=== PATIENT | female | born 1960 | race African-American/Black ===

== ENCOUNTER 2016-06-20 12:39 | Emergency (ER) | payer OTHER ==
[2016-06-20 13:02] VITALS: RESP 18
[2016-06-20] MEDS ORDERED: MECLIZINE 12.5 MG TAB PO STA (13:19)
--- NOTE | 2016-06-20 13:35 | ED ---
General Adult HPI - General Chief complaint: Dizziness Stated complaint: Eye Pain Time Seen by Provider: 06/20/16 13:11 Source: patient, RN notes reviewed Mode of arrival: ambulatory Limitations: no limitations - History of Present Illness Initial comments: This a 35-year-old female presents emergency Department with chief complaints of dizziness, right eye irritation. Patient states that she woke up today noticed her right eye was red, draining crusting. Patient states that he continues to drain. Patient has no blurred vision no pain with ocular movement and no pain associated with her eye. Patient states she has she's had problems with vertigo in the past and states that she feels dizzy at this time. She states it is worse with movement better at rest. She states she is a bland bite but states that she feels off. Patient denies chest pain, shortness of breath. Patient has a history of hypertension controlled medication and boron diabetic. Patient denies nausea, vomiting diarrhea constipation. No focal weakness. - Related Data Home Medications Medication Instructions Recorded Confirmed Omeprazole [PriLOSEC] 20 mg PO AC-BRKFST 12/17/14 06/20/16 Cholecalciferol [Vitamin D3] 1,000 unit PO DAILY 09/28/15 06/20/16 Ascorbic Acid [Vitamin C] 500 mg PO DAILY 06/20/16 06/20/16 Aspirin 81 mg PO DAILY 06/20/16 06/20/16 Lisinopril [Zestril] 20 mg PO DAILY 06/20/16 06/20/16 Clark-3 Fatty Acids [Clark-3] 1,000 mg PO DAILY 06/20/16 06/20/16 Previous Rx's Medication Instructions Recorded Meclizine [Antivert] 25 mg PO TID PRN #15 tab 06/20/16 Tobramycin [Tobrex 0.3% Ophth Soln] 1 drop BOTH EYES Q4HR #5 ml 06/20/16 Allergies Allergy/AdvReac Type Severity Reaction Status Date / Time No Known Allergies Allergy Verified 06/20/16 13:26 Review of Systems ROS Statement: Those systems with pertinent positive or pertinent negative responses have been documented in the HPI. ROS Other: All systems not noted in ROS Statement are negative. Past Medical History Past Medical History: Diabetes Mellitus, GERD/Reflux, Hypertension History of Any Multi-Drug Resistant Organisms: None Reported Past Surgical History: Tubal Ligation Additional Past Surgical History / Comment(s): fibroid tumor removal Past Psychological History: No Psychological Hx Reported Smoking Status: Current every day smoker Past Alcohol Use History: Occasional Past Drug Use History: None Reported General Exam Limitations: no limitations General appearance: alert, in no apparent distress Head exam: Present: atraumatic, normocephalic, normal inspection Eye exam: Present: PERRL, EOMI, conjunctival injection (Moderate right with purulent drainage). Absent: normal appearance, scleral icterus, periorbital swelling ENT exam: Present: normal exam, normal oropharynx, mucous membranes moist, TM's normal bilaterally, normal external ear exam Neck exam: Present: normal inspection, full ROM. Absent: tenderness, meningismus, lymphadenopathy Respiratory exam: Present: normal lung sounds bilaterally. Absent: respiratory distress, wheezes, rales, rhonchi, stridor Cardiovascular Exam: Present: regular rate, normal rhythm, normal heart sounds. Absent: systolic murmur, diastolic murmur, rubs, gallop, clicks Neurological exam: Present: alert Skin exam: Present: warm, dry, intact, normal color. Absent: rash Course Vital Signs 06/20/16 06/20/16 12:58 15:09 Temperature 98.2 F 98.0 F Pulse Rate 61 53 L Respiratory 18 18 Rate Blood Pressure 149/72 136/82 O2 Sat by Pulse 100 98 Oximetry EKG Findings - EKG Comments: EKG Findings:: EKG performed at 15:07 denies bradycardia with a rate of 49. Once 64 QRS duration 84, QT/QTC 456/411 Medical Decision Making - Medical Decision Making 55-year-old female presented for dizziness. Patient states she feels markedly improved after Antivert. She states the dizziness has essentially resolved. Patient lab work within normal limits. Patient will be given Tobrex eye drops for her conjunctivitis. Patient be discharged with Antivert and return parameters were discussed. - Lab Data Result diagrams: 06/20/16 13:50 06/20/16 13:50 Lab Results 06/20/16 06/20/16 06/20/16 Range/Units 13:50 13:50 13:50 WBC 8.0 (3.8-10.6) k/uL RBC 4.47 (3.80-5.40) m/uL Hgb 12.8 (11.4-16.0) gm/dL Hct 38.7 (34.0-46.0) % MCV 86.5 (80.0-100.0) fL MCH 28.6 (25.0-35.0) pg MCHC 33.1 (31.0-37.0) g/dL RDW 15.0 (11.5-15.5) % Plt Count 310 (150-450) k/uL Neutrophils % 45 % Lymphocytes % 43 % Monocytes % 4 % Eosinophils % 4 % Basophils % 1 % Neutrophils # 3.6 (1.3-7.7) k/uL Lymphocytes # 3.4 (1.0-4.8) k/uL Monocytes # 0.3 (0-1.0) k/uL Eosinophils # 0.4 (0-0.7) k/uL Basophils # 0.1 (0-0.2) k/uL Sodium 144 (137-145) mmol/L Potassium 4.1 (3.5-5.1) mmol/L Chloride 111 H (98-107) mmol/L Carbon Dioxide 27 (22-30) mmol/L Anion Gap 6 mmol/L BUN 10 (7-17) mg/dL Creatinine 0.70 (0.52-1.04) mg/dL Est GFR (MDRD) Af Amer >60 (>60 ml/min/1.73 sqM) Est GFR (MDRD) Non-Af >60 (>60 ml/min/1.73 sqM) Glucose 87 (74-99) mg/dL Calcium 9.5 (8.4-10.2) mg/dL Total Bilirubin 0.4 (0.2-1.3) mg/dL AST 13 L (14-36) U/L ALT 26 (9-52) U/L Alkaline Phosphatase 73 (38-126) U/L Troponin I <0.012 (0.000-0.034) ng/mL Total Protein 6.3 (6.3-8.2) g/dL Albumin 3.8 (3.5-5.0) g/dL Disposition Clinical Impression: Vertigo, Conjunctivitis Disposition: HOME SELF-CARE Condition: Stable Instructions: Dizziness (ED) Additional Instructions: Please return to the Emergency Department if symptoms worsen or any other concerns. Prescriptions: Meclizine [Antivert] 25 mg PO TID PRN #15 tab PRN Reason: Vertigo Tobramycin [Tobrex 0.3% Ophth Soln] 1 drop BOTH EYES Q4HR #5 ml Time of Disposition: 15:18
[2016-06-20 14:04] LABS: Basophils # (A) 0.1 k/uL (0-0.2); Basophils % (A) 1 %; CH 28.2; CHCM 32.8; Eosinophils # (A) 0.4 k/uL (0-0.7); Eosinophils % (A) 4 %; HCT 38.7 % (34.0-46.0); HDW 2.92; HGB 12.8 gm/dL (11.4-16.0); Luc # (Auto) 0.31; Luc % (Auto) 4; Lymphocytes # (A) 3.4 k/uL (1.0-4.8); Lymphocytes % (A) 43 %; MCH 28.6 pg (25.0-35.0); MCHC 33.1 g/dL (31.0-37.0); MCV 86.5 fL (80.0-100.0); Mean Platelet Volume 7.8; Monocytes # (A) 0.3 k/uL (0-1.0); Monocytes % (A) 4 %; Neutrophils # (A) 3.6 k/uL (1.3-7.7); Neutrophils % (A) 45 %; RBC 4.47 m/uL (3.80-5.40); WBC (Perox) 7.78
[2016-06-20 14:16] LABS: ALT 26 U/L (9-52); AST 13 U/L (14-36); Alkaline Phosphatase 73 U/L (38-126); Anion Gap 6 mmol/L; Blood Urea Nitrogen 10 mg/dL (7-17); Calcium 9.5 mg/dL (8.4-10.2); Carbon Dioxide 27 mmol/L (22-30); Chloride 111 mmol/L (98-107); Glucose 87 mg/dL (74-99); Non-African American GFR(MDRD) >60 (>60 ml/min/1.73 sqM); Potassium 4.1 mmol/L (3.5-5.1); Sodium 144 mmol/L (137-145); Total Bilirubin 0.4 mg/dL (0.2-1.3); Total Protein 6.3 g/dL (6.3-8.2)
[2016-06-20 15:45] VITALS: BP 126/75; PULSE 55; TEMP 98.1
== END 2016-06-20 15:45 | disposition home or self-care (01) ==
LOC: EC 12:39
DX: R42 Dizziness and giddiness (principal); H10.9 Unspecified conjunctivitis; K21.9 Gastro-esophageal reflux disease without esophagitis; I10 Essential (primary) hypertension; F17.200 Nicotine dependence, unspecified, uncomplicated; Z79.82 Long term (current) use of aspirin; Z79.899 Other long term (current) drug therapy
CPT/HCPCS: 36415; 80053; 84484; 85025; 93005; 99284

== ENCOUNTER 2016-10-10 12:59 | Emergency (ER) | payer OTHER ==
[2016-10-10] MEDS ORDERED: KETOROLAC 30 MG/ML 1 ML VIAL IVP STA (13:26)
--- NOTE | 2016-10-10 13:29 | ED ---
Chest Pain HPI - General Chief Complaint: Chest Pain Stated Complaint: Chest Pain Time Seen by Provider: 10/10/16 13:19 Source: patient, RN notes reviewed Mode of arrival: ambulatory Limitations: no limitations - History of Present Illness Initial Comments: This is a 55-year-old female history of hypertension who presents with complaints of 2 days of right-sided chest pain at his located below her right breast. Increases with certain movements especially turning is sitting up. She states it's 8/10 in severity at this time. She does feel tightness in this area.. No fevers chills nausea vomiting sweats cough. No known history of heart disease no history of lung disease. She does not recall any injury or heavy lifting or anything or precipitated this pain. She denies any abdominal pain or other symptoms. MD Complaint: chest pain - Related Data Home Medications Medication Instructions Recorded Confirmed Omeprazole [PriLOSEC] 20 mg PO AC-BRKFST 12/17/14 10/10/16 Cholecalciferol [Vitamin D3] 1,000 unit PO DAILY 09/28/15 10/10/16 Lisinopril [Zestril] 20 mg PO DAILY 06/20/16 10/10/16 Previous Rx's Medication Instructions Recorded Ibuprofen 800 mg PO Q6HR PRN #20 tablet 10/10/16 Allergies Allergy/AdvReac Type Severity Reaction Status Date / Time Egg Derived Allergy Rash/Hives Verified 10/10/16 14:30 Review of Systems ROS Statement: Those systems with pertinent positive or pertinent negative responses have been documented in the HPI. ROS Other: All systems not noted in ROS Statement are negative. Past Medical History Past Medical History: Diabetes Mellitus, GERD/Reflux, Hypertension History of Any Multi-Drug Resistant Organisms: None Reported Past Surgical History: Tubal Ligation Additional Past Surgical History / Comment(s): fibroid tumor removal Past Psychological History: No Psychological Hx Reported Smoking Status: Current every day smoker Past Alcohol Use History: Occasional Past Drug Use History: None Reported General Exam - General Exam Comments Initial Comments: This is a well-developed well-nourished awake alert oriented x 3 female Limitations: no limitations General appearance: alert, anxious Head exam: Present: atraumatic, normocephalic, normal inspection Eye exam: Present: normal appearance, PERRL, EOMI. Absent: scleral icterus, conjunctival injection, periorbital swelling ENT exam: Present: normal exam, mucous membranes moist Neck exam: Present: normal inspection. Absent: tenderness, meningismus, lymphadenopathy Respiratory exam: Present: chest wall tenderness, other (Reproducible tenderness palpation over the right costosternal margin). Absent: respiratory distress, wheezes, rales, rhonchi, stridor Cardiovascular Exam: Present: regular rate, normal rhythm, normal heart sounds. Absent: systolic murmur, diastolic murmur, rubs, gallop, clicks GI/Abdominal exam: Present: soft, normal bowel sounds. Absent: distended, tenderness, guarding, rebound, rigid Extremities exam: Present: normal inspection, full ROM, normal capillary refill. Absent: tenderness, pedal edema, joint swelling, calf tenderness Back exam: Present: normal inspection Neurological exam: Present: alert, oriented X3, CN II-XII intact Psychiatric exam: Present: normal affect, normal mood Skin exam: Present: warm, dry, intact, normal color. Absent: rash Course Vital Signs 10/10/16 10/10/16 10/10/16 13:12 13:44 14:25 Temperature 98.6 F Pulse Rate 55 L 48 L Pulse Rate [ 58 L [employer] ] Respiratory 18 17 Rate Blood Pressure 130/71 135/69 O2 Sat by Pulse 100 98 Oximetry Chest Pain MDM - MDM EKG shows a bradycardia 56. Interval 156 QRS duration 80 daily since QTC of 14/ 495 nonspecific T-wave configuration some artifact is present. I did reevaluate patient several occasions she is eating some improvement the presentation is consistent with costochondritis. Disposition Clinical Impression: Chest wall syndrome, Costalchondritis Disposition: HOME SELF-CARE Condition: Good Instructions: Costochondritis (ED) Prescriptions: Ibuprofen 800 mg PO Q6HR PRN #20 tablet PRN Reason: Pain Referrals: Reinaldo Mc MD [Primary Care Provider] - 1-2 days
[2016-10-10 13:45] LABS: Basophils # (A) 0.1 k/uL (0-0.2); Basophils % (A) 1 %; CH 28.8; CHCM 33.3; Eosinophils # (A) 0.3 k/uL (0-0.7); Eosinophils % (A) 3 %; HDW 2.95; HGB 11.9 gm/dL (11.4-16.0); Luc % (Auto) 2; Lymphocytes # (A) 3.7 k/uL (1.0-4.8); Lymphocytes % (A) 38 %; MCH 28.8 pg (25.0-35.0); MCV 87.3 fL (80.0-100.0); Mean Platelet Volume 7.3; Monocytes # (A) 0.2 k/uL (0-1.0); Monocytes % (A) 2 %; Neutrophils # (A) 5.4 k/uL (1.3-7.7); Neutrophils % (A) 55 %; RBC 4.12 m/uL (3.80-5.40); RDW 15.1 % (11.5-15.5); WBC 9.8 k/uL (3.8-10.6); WBC (Perox) 9.38
[2016-10-10 13:57] LABS: ALT 28 U/L (9-52); AST 15 U/L (14-36); Alkaline Phosphatase 78 U/L (38-126); Amylase 34 U/L (30-110); Anion Gap 9 mmol/L; Blood Urea Nitrogen 10 mg/dL (7-17); Calcium 9.4 mg/dL (8.4-10.2); Carbon Dioxide 25 mmol/L (22-30); Chloride 108 mmol/L (98-107); Glucose 97 mg/dL (74-99); Magnesium 1.7 mg/dL (1.6-2.3); Non-African American GFR(MDRD) >60 (>60 ml/min/1.73 sqM); Potassium 3.8 mmol/L (3.5-5.1); Sodium 142 mmol/L (137-145); Total Bilirubin 0.6 mg/dL (0.2-1.3); Total Protein 6.7 g/dL (6.3-8.2)
--- NOTE | 2016-10-10 13:57 | XR ---
EXAMINATION TYPE: XR chest 2V DATE OF EXAM: 10/10/2016 HISTORY: Chest Pain. REFERENCE: Previous study dated 09/28/2015. FINDINGS: The heart is mildly enlarged. There is mild vascular congestion and subtle interstitial eva nge. Pleural spaces are clear. IMPRESSION: PLEASE CORRELATE FOR MILD PULMONARY EDEMA AND MILD CONGESTIVE HEART FAILURE.
[2016-10-10 14:00] LABS: Creatine Kinase 83 U/L (30-135)
[2016-10-10 14:09] LABS: Partial Thromboplastin Time 26.5 sec (22.0-30.0); Prothrombin Time 10.1 sec (9.0-12.0)
[2016-10-10 14:14] LABS: Troponin I <0.012 ng/mL (0.000-0.034)
[2016-10-10 14:26] VITALS: RESP 17
[2016-10-10 15:33] VITALS: BP 132/72; PULSE 52; TEMP 98.7
== END 2016-10-10 15:32 | disposition home or self-care (01) ==
LOC: EC 12:59
DX: M94.0 Chondrocostal junction syndrome [Tietze] (principal); R00.1 Bradycardia, unspecified; K21.9 Gastro-esophageal reflux disease without esophagitis; I10 Essential (primary) hypertension; F17.200 Nicotine dependence, unspecified, uncomplicated; Z79.899 Other long term (current) drug therapy; Z91.012 Allergy to eggs
CPT/HCPCS: 36415; 93005; 85379; 83880; 80053; 82150; 82550; 82553; 83690; 83735; 84484; 85025; 85610; 85730; 71020; 99285; 96374; J1885

== ENCOUNTER → 2017-05-01 | Outpatient (CLI) | payer OTHER ==
[2017-05-01 10:23] LABS: T4, Free (Free Thyroxine) 0.8 ng/dL (0.78-2.19)
== END | disposition home or self-care (01) ==
LOC: LABWHC1 09:35
PROVIDERS: ATTEND Internal Medicine Cardiovascular Disease
DX: R00.1 Bradycardia, unspecified (principal)
CPT/HCPCS: 36415; 84439; 84443

== ENCOUNTER → 2018-03-05 | Outpatient (CLI) | payer OTHER ==
--- NOTE | 2018-03-10 11:59 | MM ---
Reason for exam: screening (asymptomatic). Last mammogram was performed 2 years and 8 months ago. History: Patient is postmenopausal. Family history of breast cancer in maternal cousin. Took hormonal contraceptives for 5 years. Physical Findings: A clinical breast exam by your physician is recommended on an annual basis and results should be correlated with mammographic findings. MG Screening Mammo w CAD Bilateral CC and MLO view(s) were taken. Prior study comparison: July 12, 2015, bilateral MG screening mammo w CAD. February 11, 2014, mammogram, performed at [facility]. No significant changes when compared with prior studies. ASSESSMENT: Benign, BI-RAD 2 RECOMMENDATION: Routine screening mammogram of both breasts in 1 year.
== END | disposition home or self-care (01) ==
LOC: RADMAMWWP 15:07
PROVIDERS: ATTEND Internal Medicine
DX: Z12.31 Encounter for screening mammogram for malignant neoplasm of breast (principal)
CPT/HCPCS: 77067

== ENCOUNTER 2018-03-12 07:15 | Day surgery (SDC) | payer OTHER ==
[~2018-03-12 07:15] MED LIST: LACTATED RINGERS 1,000 ML IV SCH
[2018-03-12 07:34] VITALS: TEMP 97.1
[2018-03-12] MEDS ORDERED: LIDOCAINE 1% 20 ML VIAL (10MG/ML) FOR IV START INTRADERMA ONE (07:39)
[2018-03-12] MEDS ORDERED: PROPOFOL 10 MG/ML 20 ML VIAL IV ONE (08:26)
[2018-03-12] MEDS ORDERED: LIDOCAINE 1% INJ 10MG/ML (20 ML MDV) ONE (08:26)
--- NOTE | 2018-03-12 08:41 | P.PCN ---
Date of Procedure: 03/12/18 Procedure(s) Performed: BRIEF HISTORY: Patient is a 57-year-old pleasant female, scheduled for an elective colonoscopy as a part of evaluation of prior history of colon polyps. Her last colonoscopy was about 7 years ago. PROCEDURE PERFORMED: Colonoscopy. PREOPERATIVE DIAGNOSIS: History of colon polyps. IV sedation per Anesthesia. PROCEDURE: After informed consent was obtained, the patient, was brought into the endoscopy unit. IV sedation was administered by Anesthesia under continuous monitoring. Digital rectal examination was normal. Initially the Olympus CF- 160 flexible video colonoscope was then inserted in the rectum, gradually advanced into the cecum without any difficulty. Careful examination was performed as the scope was gradually being withdrawn. Ileocecal valve and the appendiceal orifice were visualized and appeared normal. Prep was excellent. Mucosa of the cecum, ascending colon, transverse colon, descending colon, sigmoid colon, and rectum appeared normal. Scattered sigmoid diverticulosis seen. Retroflexion was performed in the rectum and no lesions were seen. The patient tolerated the procedure well. IMPRESSION: Normal-appearing colon from rectum to cecum with no evidence of colorectal neoplasia Scattered sigmoid diverticulosis. RECOMMENDATIONS: Findings of this examination were discussed with the patient as well as a family. She was advised to have a repeat screening colonoscopy in 10 years.
[2018-03-12 09:07] VITALS: BP 135/83; PULSE 91; RESP 18
== END 2018-03-12 09:25 | disposition home or self-care (01) ==
LOC: ORWHC2ENDO 07:15
PROVIDERS: ATTEND Internal Medicine Gastroenterology
DX: Z12.11 Encounter for screening for malignant neoplasm of colon (principal); K57.30 Diverticulosis of large intestine without perforation or abscess without bleeding; Z86.010 Personal history of colon polyps; K21.9 Gastro-esophageal reflux disease without esophagitis; I10 Essential (primary) hypertension; F17.210 Nicotine dependence, cigarettes, uncomplicated; Z79.899 Other long term (current) drug therapy; Z91.012 Allergy to eggs
CPT/HCPCS: J2001; J2704; G0105; 45378

== ENCOUNTER → 2018-10-25 | Outpatient (CLI) | payer OTHER ==
--- NOTE | 2018-10-25 13:38 | MR ---
EXAMINATION TYPE: MR cervical spine wo con DATE OF EXAM: 10/25/2018 COMPARISON: None HISTORY: Neck pain CONTRAST: Performed utilizing 0 mL intravenous Gadavist gadolinium contrast. TECHNIQUE: Multiplanar multiecho imaging on a 3.0 Sherrill magnet is performed through the cervical spin e. FINDINGS: The craniovertebral junction is normal. Vertebral body alignment is normal. C7-T1: No focal disc herniation or significant disc bulge is evident. No spinal canal stenosis or n eural foraminal stenosis is present. C6-7: No focal disc herniation or significant disc bulge is evident. No spinal canal stenosis or lexie ral foraminal stenosis is present. C5-6: There is a small central bulge with mild anterior thecal sac compression. No cord contact is ev ident. No spinal canal stenosis. No neural foraminal stenosis.. C4-5: No focal disc herniation or significant disc bulge is evident. No spinal canal stenosis or lexie ral foraminal stenosis is present. C3-4: There is a small central and left paracentral bulge with anterior thecal sac compression. No co rd contact is evident. No spinal canal stenosis or neural foraminal stenosis.. C2-3: No focal disc herniation or significant disc bulge is evident. No spinal canal stenosis or lexie ral foraminal stenosis is present. Cord maintains normal signal through its visualized course. Disc heights are preserved. Vertebral bod y heights are preserved. There is mild diffuse disc desiccation throughout the cervical spine. IMPRESSIONS: 1. Disc bulges C5-6 and C3-4 without cord contact or stenosis.
== END | disposition home or self-care (01) ==
LOC: RADMRIMAIN 12:27
PROVIDERS: ATTEND Pain Medicine Pain Medicine
DX: M50.21 Other cervical disc displacement, high cervical region (principal)
CPT/HCPCS: 72141

== ENCOUNTER → 2020-04-27 | Outpatient (CLI) | payer BC ==
--- NOTE | 2020-04-27 09:35 | US ---
EXAMINATION TYPE: US duplex aorta DATE OF EXAM: 04/27/2020 COMPARISON: NONE Patient of large body habitus. Technically difficult. CLINICAL HISTORY: Z82.49 Family history of Ischemic heart disease. EXAM MEASUREMENTS: Abdominal Aorta: Proximal: 2.6cm Mid: 1.8cm Distal: 1.4 Bifurcation: Right 1.3cm, Left 1.2cm Exam suboptimal due to patient's body habitus but abdominal aorta is successfully visualized through the bifurcation. IMPRESSION: Suboptimal study without ultrasound evidence for greater than 3.0 cm AAA
== END | disposition home or self-care (01) ==
LOC: RADUSWWP 08:19
PROVIDERS: ATTEND Family Medicine
DX: Z13.6 Encounter for screening for cardiovascular disorders (principal); Z82.49 Family history of ischemic heart disease and other diseases of the circulatory system
CPT/HCPCS: 93979

== ENCOUNTER → 2020-05-13 | Outpatient (CLI) | payer BC ==
--- NOTE | 2020-05-15 10:14 | CTL ---
EXAMINATION TYPE: CT Low Dose Lung DATE OF EXAM ORDERED: 05/13/2020 HISTORY: Long-term tobacco use. Lung cancer screening CT DLP: 75.[address] CTDI: 2.4 mGy Automated exposure control for dose reduction was used. SCREENING VISIT: Initial study COMPARISON: None TECHNIQUE: Low dose computed tomography scan was performed through the chest at 1 mm thick sections a nd reconstructed images in the coronal plane at [address] DIAGNOSTIC QUALITY: Satisfactory FINDINGS: LUNG NODULES: Present, detailed below: There is 3.2 x 2.5 mm nodule peripheral lingula axial image 152. There is 3.1 x 2.3 mm hypodense possibly calcified nodule right lower lobe axial image 128. LUNGS: COPD: Severity: Mild Fibrosis: Severity: Mild bibasilar Lymph nodes: Prominent paratracheal lymph node measuring 1.7 x 0.8 cm on image 84. No definitive grea ter than 1 cm thoracic lymph nodes Other findings: Slightly elevated left hemidiaphragm. RIGHT PLEURAL SPACE: Effusion: None Calcification: None Thickening: None Pneumothorax: None LEFT PLEURAL SPACE: Effusion: None Calcification: None Thickening: None Pneumothorax: None HEART: Heart Size: Upper limits of normal Coronary calcification: [id number] in the RCA distribution Pericardial effusion: Non- OTHER FINDINGS: Upper abdomen: None Bony thorax: Mild multilevel spurring Supraclavicular region: None Other: Some prominent but benign-appearing bilateral axillary lymph nodes. IMPRESSION: Small benign nodules. No suspicious greater than [address] LUNG RAD AND CT CHEST RECOMMENDATION: Lung-Rad 2 Benign Appearance or Behavior: Continue annual sc reening with LDCT in 12 months. S Modifier (other clinically significant findings): None
== END | disposition home or self-care (01) ==
LOC: RADCTMAIN 15:43
PROVIDERS: ATTEND Nurse Practitioner Family
DX: Z12.2 Encounter for screening for malignant neoplasm of respiratory organs (principal); R91.8 Other nonspecific abnormal finding of lung field; F17.210 Nicotine dependence, cigarettes, uncomplicated
CPT/HCPCS: 71271

== ENCOUNTER → 2020-05-13 | Outpatient (CLI) | payer BC ==
--- NOTE | 2020-05-16 08:54 | MM ---
Reason for exam: screening (asymptomatic). Last mammogram was performed 2 years and 2 months ago. History: Patient is postmenopausal. Family history of breast cancer in maternal cousin. Took hormonal contraceptives for 5 years. Physical Findings: A clinical breast exam by your physician is recommended on an annual basis and results should be correlated with mammographic findings. MG Screening Mammo w CAD Bilateral CC and MLO view(s) were taken. Prior study comparison: March 05, 2018, bilateral MG screening mammo w CAD. July 12, 2015, bilateral MG screening mammo w CAD. The breast tissue is heterogeneously dense. This may lower the sensitivity of mammography. There is no discrete abnormality. No significant changes when compared with prior studies. ASSESSMENT: Negative, BI-RAD 1 RECOMMENDATION: Routine screening mammogram of both breasts in 1 year.
== END | disposition home or self-care (01) ==
LOC: RADMAMWWP 16:05
PROVIDERS: ATTEND Family Medicine
DX: Z12.31 Encounter for screening mammogram for malignant neoplasm of breast (principal)
CPT/HCPCS: 77067

== ENCOUNTER → 2020-06-20 | Outpatient (CLI) | payer BC ==
--- NOTE | 2020-06-20 09:52 | US ---
EXAMINATION TYPE: US abdomen complete DATE OF EXAM: 06/20/2020 COMPARISON: NONE CLINICAL HISTORY: 59-year-old female R79.82 Elevated C-reactive protein. TECHNIQUE: Multiple sonographic images of the abdomen are obtained. FINDINGS: EXAM MEASUREMENTS: Liver Length: 17.2 cm Gallbladder Wall: 0.2 cm CBD: 0.4 cm Spleen: 8.4 cm Right Kidney: 10.4 x 4.0 x 3.6 cm Left Kidney: 10.3 x 5.2 x 3.9 cm Pancreas: Tail obscured by overlying bowel gas. The remainder visualized portions appear within norm al limits. Liver: wnl Gallbladder: wnl Evidence for sonographic Heller's sign: no CBD: wnl Spleen: wnl Right Kidney: no evidence of hydronephrosis Left Kidney: no evidence of hydronephrosis Upper IVC: wnl Abd Aorta: wnl IMPRESSION: 1. Borderline sized liver at 17.2 cm. 2. Suboptimal visualization of the pancreatic tail. 3. Otherwise, unremarkable sonographic examination of the abdomen.
--- NOTE | 2020-06-20 11:06 | US ---
EXAMINATION TYPE: US pelvis complete transvag DATE OF EXAM: 06/20/2020 COMPARISON: NONE CLINICAL HISTORY: 59-year-old female R79.82 Elevated C-reactive protein. TECHNIQUE: Transabdominal sonographic images of the pelvis were acquired. Transvaginal sonographic i mages were medically necessary to better assess the following anatomy: uterus and ovaries Date of LMP: unknown EXAM MEASUREMENTS: Uterus: 7.6 x 3.5 x 4.8 cm Endometrial Stripe: 0.2 cm Right Ovary: unable to visualize Left Ovary: unable to visualize 1. Uterus: Anteverted with heterogeneous myometrium. 2. Endometrium: appears wnl 3. Right Ovary: Obscured by overlying bowel gas 4. Left Ovary: Obscured by overlying bowel gas 5. Bilateral Adnexa: wnl 6. Posterior cul-de-sac: Questionable trace fluid. IMPRESSION: 1. Heterogeneous myometrium may reflect diffuse small fibroid change or adenomyosis. 2. Thin endometrial stripe at 2 mm. 3. Unable to visualize the ovaries.
== END | disposition home or self-care (01) ==
LOC: RADUSWWP 08:26
PROVIDERS: ATTEND Family Medicine
DX: R93.89 Abnormal findings on diagnostic imaging of other specified body structures (principal); R79.82 Elevated C-reactive protein (CRP)
CPT/HCPCS: 76700; 76830; 76856

== ENCOUNTER → 2020-06-30 | Outpatient (CLI) | payer BC ==
--- NOTE | 2020-06-30 11:58 | CT ---
EXAMINATION TYPE: CT abdomen pelvis w con DATE OF EXAM: 06/30/2020 COMPARISON: Ultrasound 06/20/2020 HISTORY: 59 year-old female R82.90, with right flank pain, abnormal findings in urine TECHNIQUE: Contiguous axial scanning of the abdomen and pelvis following administration of 100 ml Iso haydee 300 IV contrast. Delayed images through the kidneys and coronal/sagittal reconstructions perform ed. CT DLP: 1196.6 mGycm Automated exposure control for dose reduction was used. FINDINGS: Heart upper limits of normal size without pericardial effusion. There may be atelectasis in the lower lungs without pleural effusion. Small hiatal hernia. Liver enlarged at 19.8 cm. No focal liver lesion or biliary ductal dilatation. Portal venous system a ppears patent. Gallbladder, adrenal glands, right kidney, spleen, and pancreas appear within normal limits. Tiny subcentimeter cortical hypodensity anterior mid pole left kidney too small for accurate CT denice cterization, likely small cortical cyst. Surgical clips are present along the mid to lower left periaortic retroperitoneum. No mesenteric or r etroperitoneal lymphadenopathy. No dilated small bowel, free fluid, or free air. Normal appendix. Scattered colonic diverticulosis. Oral contrast progressed to the distal sigmoid. No pericolonic inflammatory change. Bladder partially distended. Uterus anteverted. Pelvic phleboliths. Surgical clips along the left adn exa. Unable to clearly delineate either ovary. Numerous nonenlarged inguinal lymph nodes measuring up to 8 mm and within the external iliac chain me asuring up to 8 mm. Bones: 1.2 cm sclerotic focus left iliac wing. Mild degenerative disc disease L5-S1. Superior endplat e Schmorl's node T11. Facet arthropathy lower lumbar spine. IMPRESSION: 1. SURGICAL CLIPS ALONG THE MID TO LOWER LEFT PARA-AORTIC RETROPERITONEUM AND ALSO WITHIN THE LEFT AD NEXA. CORRELATE WITH PATIENT'S PRIOR SURGICAL HISTORY. NEITHER OVARY COULD BE CLEARLY DELINEATED. 2. SMALL HIATAL HERNIA. MILD HEPATOMEGALY (19.8 CM). GENERALIZED COLONIC DIVERTICULOSIS WITHOUT ACUTE DIVERTICULITIS. 3. A 1.2 CM SCLEROTIC FOCUS OF THE LEFT ILIAC WING, LIKELY BENIGN BONE ISLAND IN THE ABSENCE OF ANY KNOWN PRIMARY MALIGNANCY. IF FURTHER EVALUATION IS DESIRED, NUCLEAR MEDICINE WHOLE BODY BONE SCAN CAN BE CONSIDERED.
== END ==
LOC: RADCTMAIN 08:59
PROVIDERS: ATTEND Family Medicine
DX: K44.9 Diaphragmatic hernia without obstruction or gangrene (principal); R16.0 Hepatomegaly, not elsewhere classified; K57.30 Diverticulosis of large intestine without perforation or abscess without bleeding
CPT/HCPCS: 74177; Q9967

== ENCOUNTER → 2020-08-03 | Outpatient (CLI) | payer BC ==
--- NOTE | 2020-08-03 15:30 | NM ---
EXAMINATION TYPE: NM bone scan whole body DATE OF EXAM: 08/03/2020 COMPARISON: NONE HISTORY: left pelvic pain Delayed whole-body scanning was performed following the injection of 22.8 mCi Tc 99m MDP. Images acq uired 3 hours post injection. FINDINGS: There is degenerative uptake noted about the shoulders, sternoclavicular joints, bilateral knees, lizbeth ateral ankles, left midfoot and great toes. There is no evidence for intense uptake to suggest bony d estructive process or lesion. No fractures are evident. IMPRESSION: Degenerative uptake identified.
== END | disposition home or self-care (01) ==
LOC: RADNMMAIN 11:31
PROVIDERS: ATTEND Family Medicine
DX: R10.2 Pelvic and perineal pain (principal)
CPT/HCPCS: 78306; A9503

== ENCOUNTER 2020-12-17 19:40 | Emergency (ER) | payer BC ==
[2020-12-17 19:46] VITALS: TEMP 98.4
--- NOTE | 2020-12-17 19:53 | ED ---
General Adult HPI - General Chief complaint: Extremity Problem,Nontraumatic Stated complaint: L arm pain Time Seen by Provider: 12/17/20 19:46 Source: patient Mode of arrival: ambulatory Limitations: no limitations - History of Present Illness Initial comments: Patient presents to the ED with her for evaluation. Patient states that she just got off of work about 30 minutes ago when she developed "shooting pain" down her left arm. Patient states that the pain shoots from her left shoulder region down to her fingertips, and is episodic in nature. Patient denies having any pain currently. Patient denies trauma or injury that she is aware of. Patient denies fever or chills, headache, focal numbness/weakness/neuro deficit, neck/back pain, chest pain or pressure, dyspnea, palpitations, dizziness, nausea/vomiting/diaphoresis, abdominal pain, dysuria or urinary symptoms, arm swelling, leg or calf swelling or pain, or any other symptoms or complaints. - Related Data Home Medications Medication Instructions Recorded Confirmed Baclofen [Lioresal] 20 mg PO TID PRN 12/17/20 12/17/20 Escitalopram [Lexapro] 10 mg PO DAILY 12/17/20 12/17/20 HYDROcodone/APAP 10-325MG [Russell 1 tab PO Q8H PRN 12/17/20 12/17/20 10-325] Ibuprofen [Motrin] 800 mg PO Q8H PRN 12/17/20 12/17/20 Magnesium 250 mg PO DAILY 12/17/20 12/17/20 Multivitamins, Thera [Multivitamin 1 tab PO DAILY 12/17/20 12/17/20 (formulary)] Zinc 50 mg PO DAILY 12/17/20 12/17/20 Allergies Allergy/AdvReac Type Severity Reaction Status Date / Time Egg Derived Allergy Rash/Hives Verified 12/17/20 20:27 Review of Systems ROS Statement: Those systems with pertinent positive or pertinent negative responses have been documented in the HPI. ROS Other: All systems not noted in ROS Statement are negative. Past Medical History Past Medical History: GERD/Reflux, Hypertension History of Any Multi-Drug Resistant Organisms: None Reported Past Surgical History: Tubal Ligation Additional Past Surgical History / Comment(s): fibroid tumor removal. COLONOSOCPY Past Anesthesia/Blood Transfusion Reactions: No Reported Reaction Past Psychological History: No Psychological Hx Reported Smoking Status: Current every day smoker Past Alcohol Use History: Occasional Past Drug Use History: None Reported - Past Family History Mother Family Medical History: No Reported History General Exam Limitations: no limitations General appearance: alert, in no apparent distress Head exam: Present: atraumatic, normocephalic Eye exam: Present: normal appearance, EOMI ENT exam: Present: mucous membranes moist Neck exam: Present: full ROM, other (Trachea is in midline). Absent: tenderness Respiratory exam: Present: normal lung sounds bilaterally. Absent: respiratory distress, wheezes, rales, rhonchi, stridor Cardiovascular Exam: Present: regular rate, normal rhythm, normal heart sounds, other (Normal radial pulses bilaterally) GI/Abdominal exam: Present: soft. Absent: distended, tenderness, guarding Extremities exam: Present: normal inspection, full ROM. Absent: tenderness, pedal edema, calf tenderness Back exam: Present: normal inspection. Absent: tenderness Neurological exam: Present: alert, oriented X3. Absent: motor sensory deficit Psychiatric exam: Present: normal affect, normal mood Skin exam: Present: warm, dry, intact, normal color Course Vital Signs 12/17/20 12/17/20 19:43 21:27 Temperature 98.4 F Pulse Rate 102 H 56 L Respiratory 18 16 Rate Blood Pressure 168/84 131/77 O2 Sat by Pulse 98 100 Oximetry - Reevaluation(s) Reevaluation #1: 12/17/20 23:17 Patient continues to deny having any chest pain, and she denies development of any new symptoms while in the ED. Patient remains alert and breathing comfortably. Patient and are aware the patient's test results, and patient feels comfortable going home at this time. She was counseled about arm pain and possible causes. She was clearly explained return and follow-up instructions, and she feels comfortable with this plan. She was also instructed to follow up closely with her primary care provider. EKG Findings - EKG Comments: EKG Findings:: Sinus bradycardia, ventricular rate of 56 bpm, no ectopy, normal AL and QRS intervals, normal QT interval, normal axis, nonspecific T-wave abnormality Medical Decision Making - Medical Decision Making Patient's ED workup is fairly unremarkable, including 2 negative troponins drawn about 2 hours apart. Patient reports having "shooting" left arm pain radiating from her left shoulder down to her fingertips. Given this description, I suspect that her pain may be radicular or neuropathic in etiology. I do not suspect a cardiac or emergent medical condition at this time. Patient was clearly provided return and follow-up instructions, and she feels comfortable going home at this time. - Lab Data Result diagrams: 12/17/20 20:27 12/17/20 20:27 Lab Results 12/17/20 12/17/20 12/17/20 Range/Units 20:27 20:27 20:27 WBC 9.4 (3.8-10.6) k/uL RBC 4.58 (3.80-5.40) m/uL Hgb 13.0 (11.4-16.0) gm/dL Hct 40.1 (34.0-46.0) % MCV 87.7 (80.0-100.0) fL MCH 28.4 (25.0-35.0) pg MCHC 32.4 (31.0-37.0) g/dL RDW 15.9 H (11.5-15.5) % Plt Count 374 (150-450) k/uL MPV 7.5 Neutrophils % 54 % Lymphocytes % 35 % Monocytes % 3 % Eosinophils % 3 % Basophils % 1 % Neutrophils # 5.1 (1.3-7.7) k/uL Lymphocytes # 3.3 (1.0-4.8) k/uL Monocytes # 0.3 (0-1.0) k/uL Eosinophils # 0.3 (0-0.7) k/uL Basophils # 0.0 (0-0.2) k/uL PT 10.1 (9.0-12.0) sec INR 0.9 (<1.2) APTT 26.5 (22.0-30.0) sec Sodium 138 (137-145) mmol/L Potassium 4.7 (3.5-5.1) mmol/L Chloride 106 (98-107) mmol/L Carbon Dioxide 24 (22-30) mmol/L Anion Gap 8 mmol/L BUN 11 (7-17) mg/dL Creatinine 0.58 (0.52-1.04) mg/dL Est GFR (CKD-EPI)AfAm >90 (>60 ml/min/1.73 sqM) Est GFR (CKD-EPI)NonAf >90 (>60 ml/min/1.73 sqM) Glucose 87 (74-99) mg/dL Calcium 9.8 (8.4-10.2) mg/dL Total Bilirubin 0.4 (0.2-1.3) mg/dL AST 26 (14-36) U/L ALT 14 (4-34) U/L Alkaline Phosphatase 91 (38-126) U/L Troponin I (0.000-0.034) ng/mL Total Protein 7.3 (6.3-8.2) g/dL Albumin 4.4 (3.5-5.0) g/dL 12/17/20 12/17/20 Range/Units 20:27 22:27 WBC (3.8-10.6) k/uL RBC (3.80-5.40) m/uL Hgb (11.4-16.0) gm/dL Hct (34.0-46.0) % MCV (80.0-100.0) fL MCH (25.0-35.0) pg MCHC (31.0-37.0) g/dL RDW (11.5-15.5) % Plt Count (150-450) k/uL MPV Neutrophils % % Lymphocytes % % Monocytes % % Eosinophils % % Basophils % % Neutrophils # (1.3-7.7) k/uL Lymphocytes # (1.0-4.8) k/uL Monocytes # (0-1.0) k/uL Eosinophils # (0-0.7) k/uL Basophils # (0-0.2) k/uL PT (9.0-12.0) sec INR (<1.2) APTT (22.0-30.0) sec Sodium (137-145) mmol/L Potassium (3.5-5.1) mmol/L Chloride (98-107) mmol/L Carbon Dioxide (22-30) mmol/L Anion Gap mmol/L BUN (7-17) mg/dL Creatinine (0.52-1.04) mg/dL Est GFR (CKD-EPI)AfAm (>60 ml/min/1.73 sqM) Est GFR (CKD-EPI)NonAf (>60 ml/min/1.73 sqM) Glucose (74-99) mg/dL Calcium (8.4-10.2) mg/dL Total Bilirubin (0.2-1.3) mg/dL AST (14-36) U/L ALT (4-34) U/L Alkaline Phosphatase (38-126) U/L Troponin I <0.012 <0.012 (0.000-0.034) ng/mL Total Protein (6.3-8.2) g/dL Albumin (3.5-5.0) g/dL - Radiology Data Radiology results: report reviewed (Chest x-ray: No active cardiopulmonary disease) Disposition Clinical Impression: Left arm pain Disposition: HOME SELF-CARE Condition: Stable Instructions (If sedation given, give patient instructions): Cervical Radiculopathy (ED), Arm Pain (ED) Additional Instructions: Return to the ER immediately should you develop new or worsening pain, a fever, shortness of breath, vomiting, feeling dizzy or faint, or new or worsening symptoms. Follow up closely with your primary care provider. Is patient prescribed a controlled substance at d/c from ED?: No Referrals: Kia Farrar III, MD [Primary Care Provider] - 1-2 days Time of Disposition: 23:18
[2020-12-17 20:37] LABS: Basophils % (A) 1 %; Eosinophils # (A) 0.3 k/uL (0-0.7); Eosinophils % (A) 3 %; HCT 40.1 % (34.0-46.0); Lymphocytes # (A) 3.3 k/uL (1.0-4.8); Lymphocytes % (A) 35 %; MCH 28.4 pg (25.0-35.0); MCHC 32.4 g/dL (31.0-37.0); MCV 87.7 fL (80.0-100.0); Mean Platelet Volume 7.5; Monocytes # (A) 0.3 k/uL (0-1.0); Monocytes % (A) 3 %; Neutrophils # (A) 5.1 k/uL (1.3-7.7); Neutrophils % (A) 54 %; Platelet Count 374 k/uL (150-450); RBC 4.58 m/uL (3.80-5.40); RDW 15.9 % (11.5-15.5); WBC 9.4 k/uL (3.8-10.6)
[2020-12-17 20:45] LABS: INR 0.9 (<1.2); Partial Thromboplastin Time 26.5 sec (22.0-30.0); Prothrombin Time 10.1 sec (9.0-12.0)
--- NOTE | 2020-12-17 20:47 | XR ---
EXAMINATION TYPE: XR chest 1V portable DATE OF EXAM: 12/17/2020 COMPARISON: 10/10/2016 HISTORY: Chest pain TECHNIQUE: Single view FINDINGS: There is no heart failure nor confluent pneumonic infiltrate. Costophrenic angles are clear . There is apparent old left-sided healed rib fractures. There are no hilar masses. There are chest l mildred. Thoracic spine is intact. IMPRESSION: No active cardiopulmonary disease. No change.
[2020-12-17 20:48] LABS: ALT 14 U/L (4-34); AST 26 U/L (14-36); African American GFR (CKD) >90 (>60 ml/min/1.73 sqM); Albumin 4.4 g/dL (3.5-5.0); Alkaline Phosphatase 91 U/L (38-126); Anion Gap 8 mmol/L; Blood Urea Nitrogen 11 mg/dL (7-17); Calcium 9.8 mg/dL (8.4-10.2); Carbon Dioxide 24 mmol/L (22-30); Chloride 106 mmol/L (98-107); Glucose 87 mg/dL (74-99); Non-African American GFR(CKD) >90 (>60 ml/min/1.73 sqM); Potassium 4.7 mmol/L (3.5-5.1); Sodium 138 mmol/L (137-145); Total Bilirubin 0.4 mg/dL (0.2-1.3); Total Protein 7.3 g/dL (6.3-8.2)
[2020-12-17 21:28] VITALS: RESP 16
[2020-12-17 23:25] VITALS: BP 128/70; PULSE 65
== END 2020-12-17 23:23 | disposition home or self-care (01) ==
LOC: EC 19:40
DX: M79.602 Pain in left arm (principal); I10 Essential (primary) hypertension; F17.200 Nicotine dependence, unspecified, uncomplicated; Z79.899 Other long term (current) drug therapy
CPT/HCPCS: 36415; 71045; 80053; 84484; 85025; 85610; 85730; 93005; 99284

== ENCOUNTER → 2022-03-12 | Outpatient (CLI) | payer BC ==
--- NOTE | 2022-03-12 08:06 | US ---
EXAMINATION TYPE: US thyroid st tissue head/neck DATE OF EXAM: 03/12/2022 COMPARISON: NONE CLINICAL HISTORY: E04.1 NONTOXIC SINGLE THYROID NODULE. MEASUREMENTS: GLAND SIZE: Right Lobe: 4.4 x 1.8 x 1.3 cm Homogeneous Left Lobe: 3.7 x 1.2 x 1.7cm Homogeneous Isthmus Thickness: 0.2 NODULES RIGHT: # of nodules measured on right: 0 LEFT: # of nodules measured on left: 0 Subcentimeter cyst noted. ISTHMUS: # of nodules measured within isthmus: 0 Bilateral neck scanned, no evidence of lymphadenopathy. Homogeneous normal-sized thyroid with few tiny thin-walled cystic nodules in the left thyroid lobe. IMPRESSION: As above. No concerning nodules.
--- NOTE | 2022-03-13 07:27 | BD ---
EXAMINATION TYPE: Axial Bone Density DATE OF EXAM: 03/12/2022 COMPARISON: NONE CLINICAL HISTORY: 61 years year old Female. ICD-10 CODE: Z13.820 SCREENING FOR OSTEOPOROSIS postmeno pausal female Height: 5 FT 2 IN Weight: 178 FRAX RISK QUESTIONS: Alcohol (3 or more units per day): NO Family History (Parent hip fracture): NO Glucocorticoids (More than 3mos): NO (Ex: prednisone, prednisolone, methylprednisolone, dexamethasone, and hydrocortisone). History of Fracture in Adulthood: YES Secondary Osteoporosis: 1. Type 1 Diabetes: NO 2. Hyperthyroidism: NO 3. Menopause before 45: YES 4. Malnutrition: NO 5. Chronic liver disease: NO Rheumatoid Arthritis: NO Current Tobacco Use: YES RISK FACTORS HISTORY OF: Surgery to Spine/Hip(right/left)/Wrist (right/left): NO Family History of Osteoporosis: NO Active: YES Diet low in dairy products/other sources of calcium: NO Postmenopausal woman: YES Take estrogen and/or progesterone medications: NOT NOW Lost more than 2 inches in height since high school: NO Frequent falls: NO Poor Health: GOOD Hyperparathyroidism: NO Adrenal Insufficiency: NO MEDICATIONS: Additional Medications: CHOLESTEROL MEDS, Additional History: EXAM MEASUREMENTS: Bone mineral densitometry was performed using the [facility]. Bone mineral density as measured about the Lumbar spine is: ----- L1-L4(G/cm2): 0.906 T Score Values are as follows: ----- L1: -0.9 ----- L2: -2.4 ----- L3: -2.9 ----- L4: -2.7 ----- L1-L4: -2.3 BASELINE Bone mineral density about the R hip (g/cm2): 0.649 Bone mineral density about the L hip (g/cm2): 0.820 T Score values are as follows: -----R Neck: -2.8 -----L Neck: -1.6 -----R Total: -2.3 -----L Total: -1.6 BASELINE FRAX%s: The graph provided illustrates a 12.3 % chance for a major osteoporotic fx and a 4.8 % chance for the hips probability for fx in 10 years time. IMPRESSION: Osteoporosis (T Score less than -2.5). There is increased fracture risk and therapy is usually indicated based on age. Re-Screen 1-2 years. NOTE: T-SCORE=SD OF THE YOUNG ADULT MEAN.
--- NOTE | 2022-03-13 08:40 | MM ---
Reason for Exam: Screening (asymptomatic). Last mammogram was performed 1 year(s) and 10 month(s) ago. Patient History: Menarche at age 10. First Full-Term at age 17. Left ovary removed at age 39. Right ovary removed at age 39. Hysterectomy at age 39. Postmenopausal. Patient used Hormonal Contraceptives for 5 years. Maternal cousin had breast cancer, age 52. Risk Values: Iwona 5 year model risk: 1.2%. NCI Lifetime model risk: 5.5%. Prior Study Comparison: 07/12/2015 Bilateral Screening Mammogram, [facility]. 03/05/2018 Bilateral Screening Mammogram, [facility]. 05/13/2020 Bilateral Screening Mammogram, [facility]. Tissue Density: There are scattered fibroglandular densities. Findings: Analyzed By CAD. Prominent but Benign-appearing bilateral axillary lymph nodes are redemonstrated. There is no suspicious new group of microcalcifications or new suspicious mass in either breast. Overall Assessment: Benign, BI-RAD 2 Management: Screening Mammogram of both breasts in 1 year. A clinical breast exam by your physician is recommended on an annual basis and results should be correlated with mammographic findings. Electronically signed and approved by: Nirmal Webb M.D.
== END | disposition home or self-care (01) ==
LOC: RADUSWWP 07:22
PROVIDERS: ATTEND Family Medicine
DX: Z12.31 Encounter for screening mammogram for malignant neoplasm of breast (principal); Z13.820 Encounter for screening for osteoporosis; M81.0 Age-related osteoporosis without current pathological fracture; E04.1 Nontoxic single thyroid nodule; Z78.0 Asymptomatic menopausal state; Z80.3 Family history of malignant neoplasm of breast
CPT/HCPCS: 76536; 77067; 77080

== ENCOUNTER → 2022-07-23 | Outpatient (CLI) | payer BC ==
[2022-07-23 16:33] LABS: Basophils # (A) 0.1 k/uL (0-0.2); Basophils % (A) 1 %; Eosinophils # (A) 0.3 k/uL (0-0.7); Eosinophils % (A) 3 %; HCT 38.2 % (34.0-46.0); HGB 12.3 gm/dL (11.4-16.0); Lymphocytes # (A) 3.5 k/uL (1.0-4.8); Lymphocytes % (A) 37 %; MCH 28.2 pg (25.0-35.0); MCHC 32.2 g/dL (31.0-37.0); MCV 87.8 fL (80.0-100.0); Mean Platelet Volume 7.5; Monocytes # (A) 0.3 k/uL (0-1.0); Monocytes % (A) 3 %; Neutrophils # (A) 5.1 k/uL (1.3-7.7); Neutrophils % (A) 54 %; Platelet Count 397 k/uL (150-450); RBC 4.35 m/uL (3.80-5.40); RDW 15.3 % (11.5-15.5); WBC 9.3 k/uL (3.8-10.6)
[2022-07-23 16:46] LABS: ALT 17 U/L (4-34); AST 20 U/L (14-36); African American GFR (CKD) >90 (>60 ml/min/1.73 sqM); Albumin 4.2 g/dL (3.5-5.0); Albumin/Globulin Ratio 1.4; Alkaline Phosphatase 104 U/L (38-126); Anion Gap 7 mmol/L; Blood Urea Nitrogen 8 mg/dL (7-17); Calcium 9.1 mg/dL (8.4-10.2); Carbon Dioxide 24 mmol/L (22-30); Chloride 109 mmol/L (98-107); Glucose 80 mg/dL (74-99); Non-African American GFR(CKD) >90 (>60 ml/min/1.73 sqM); Potassium 3.5 mmol/L (3.5-5.1); Sodium 140 mmol/L (137-145); Total Bilirubin 0.5 mg/dL (0.2-1.3); Total Protein 7.2 g/dL (6.3-8.2)
--- NOTE | 2022-07-23 18:55 | CT ---
EXAMINATION TYPE: CT abdomen pelvis w con DATE OF EXAM: 07/23/2022 COMPARISON: 06/30/2020 INDICATION: LLQ abdominal pain DLP: 1308.8 mGycm, Automated exposure control for dose reduction was used. CONTRAST: 80 cc mL of Isovue 300. Study performed with Oral Contrast TECHNIQUE: Axial images were obtained from above the diaphragm to the pubic rami in the axial plane a t 5 mm thick sections. Reconstructed images are reviewed on the computer in the coronal plane. FINDINGS: Limited CT sections are obtained the lung bases. The lung bases are clear. CT ABDOMEN: Reflux into the distal esophagus is noted on the delayed images. Liver: Normal Spleen: Normal Pancreas: Normal Adrenal glands: The adrenal glands are normal. Gallbladder: Normal Kidneys: No masses are evident. No hydronephrosis is present. No cysts are present. Delayed images were obtained through the kidneys, which remain unremarkable. Aorta: Vascular calcification is within the aorta. Inferior vena cava: Normal. CT PELVIS: Loops of bowel within the abdomen and pelvis are normal. There are loops of bowel which are incom pletely distended or lack oral contrast limiting their evaluation. Oral contrast extends to the trans verse colon. There are a few scattered diverticuli present. No acute diverticulitis is evident. Appendix: Normal as visualized. Urinary bladder: Normal. Genitourinary structures: Uterus is in the left hemipelvis. Adnexa appear normal. Osseous structures: No suspicious lytic or sclerotic lesions. IMPRESSIONS: 1. Diverticulosis without acute diverticulitis. 2. Gastroesophageal reflux.
== END | disposition home or self-care (01) ==
LOC: RADCTMAIN 15:30
PROVIDERS: ATTEND Family Medicine
DX: K21.9 Gastro-esophageal reflux disease without esophagitis (principal); K57.30 Diverticulosis of large intestine without perforation or abscess without bleeding
CPT/HCPCS: 80053; 85025; 74177; 36415; Q9967

== ENCOUNTER → 2022-08-30 | Outpatient (CLI) | payer BC ==
--- NOTE | 2022-08-30 16:05 | CTL ---
EXAMINATION TYPE: CT Low Dose Lung DATE OF EXAM ORDERED: 08/30/2022 HISTORY: Z87.891 PERSONAL HISTORY OF NICOTINE DEPENDENCE. Lung cancer screening CT DLP: 72.[address] CTDI: 2.4 mGy Automated exposure control for dose reduction was used. SCREENING VISIT: Follow-up COMPARISON: CT low-dose lung cancer screening 05/13/2020 TECHNIQUE: Low dose computed tomography scan was performed through the chest at 1 mm thick sections a nd reconstructed images in multiple planes at 1 mm and [address] DIAGNOSTIC QUALITY: Satisfactory FINDINGS: LUNG NODULES: Stable 3.0 cm peripheral lingular nodule (series 3, image 157). Stable calcified 3 mm r ight lower lobe pulmonary nodule (series 3, image 113). No new or enlarging pulmonary nodules. LUNGS: COPD: Severity: Mild Fibrosis: Severity: Mild bibasilar Lymph nodes: Stable prominent paratracheal lymph node measuring 1.0 cm short axis. Other findings: None RIGHT PLEURAL SPACE: Effusion: None Calcification: None Thickening: None Pneumothorax: None LEFT PLEURAL SPACE: Effusion: None Calcification: None Thickening: None Pneumothorax: None HEART: Heart Size: Normal Coronary Calcification: Mild in the RCA distribution. Pericardial Effusion: None OTHER FINDINGS: Upper abdomen: None Bony thorax: No acute osseous abnormality. Prominent Schmorl's node involving the T11 superior endpla te. Mild multilevel spurring. Supraclavicular region: None Other: None IMPRESSION: Stable few pulmonary nodules measuring up to 3 mm. No new or enlarging pulmonary nodules. CT LUNG RAD AND CT CHEST RECOMMENDATION: Lung-Rad 2 Benign Appearance or Behavior: Continue annual sc reening with LDCT in 12 months. S Modifier (other clinically significant findings): None
== END | disposition home or self-care (01) ==
LOC: RADCTMAIN 15:24
PROVIDERS: ATTEND Family Medicine
DX: Z12.2 Encounter for screening for malignant neoplasm of respiratory organs (principal); R91.8 Other nonspecific abnormal finding of lung field; J44.9 Chronic obstructive pulmonary disease, unspecified; J84.10 Pulmonary fibrosis, unspecified; Z87.891 Personal history of nicotine dependence
CPT/HCPCS: 71271

== ENCOUNTER → 2023-01-25 | Outpatient (CLI) | payer BC ==
--- NOTE | 2023-01-25 09:43 | MR ---
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 IV Contrast: (None if empty) FINDINGS: Alignment: The lumbar vertebral bodies have preserved heights and alignment. Cord: The conus medullaris and the distal spinal cord appear unremarkable with regards to their signa l intensity and morphology. Bones/Discs: Mild multilevel degeneration changes with osteophyte formation. Scattered disc desiccati on is present. Intervertebral disc signal is maintained. T12-L1: No evidence of significant spinal canal stenosis or neural foraminal stenosis. L1-L2: No evidence of significant spinal canal stenosis or neural foraminal stenosis. L2-L3: No evidence of significant spinal canal stenosis or neural foraminal stenosis. L3-L4: No evidence of significant spinal canal stenosis or neural foraminal stenosis. L4-L5: Large osteophyte on the right impresses upon the cauda equina and displaces the nerve roots. S eries 601 image 9. There is no significant spinal canal or neural foraminal stenosis. Small left face t joint effusion. L5-S1: The disc is rounded posterior morphology without significant spinal canal stenosis. Facet join t arthropathy with mild right and severe left neural foraminal stenosis neural foraminal stenosis. Th e left exiting nerve is displaced series 601 image 4 secondary to osteophytes and facet joint arthrop athy. No significant spinal canal or neural foraminal stenosis in the remainder of the visualized levels. Other findings: None. IMPRESSION: 1. L5-S1 severe left neural foraminal stenosis secondary to osteophyte and facet joint arthropathy. T his displaces the left exiting nerve series 601 image 4. 2. Facet hypertrophy on the right at L4-L5 which displaces right-sided nerve roots in the spinal gomez l.
== END | disposition home or self-care (01) ==
LOC: RADMRIMAIN 05:57
PROVIDERS: ATTEND Pain Medicine Pain Medicine
DX: M99.73 Connective tissue and disc stenosis of intervertebral foramina of lumbar region (principal); M47.27 Other spondylosis with radiculopathy, lumbosacral region; M46.1 Sacroiliitis, not elsewhere classified
CPT/HCPCS: 72148

== ENCOUNTER → 2023-02-05 | Outpatient (CLI) | payer OTHER ==
--- NOTE | 2023-02-05 10:08 | XR ---
EXAMINATION TYPE: XR knee limited bilateral DATE OF EXAM: 02/05/2023 CLINICAL HISTORY: pain TECHNIQUE: Three views of the bilateral knees are obtained. COMPARISON: None. FINDINGS: There is no acute fracture/dislocation. The tri-compartment joint spaces appear moderatel y narrowed involving the bilateral medial tibiofemoral joint spaces. Mild superior patellar spurring is seen bilaterally. The overlying soft tissue appears unremarkable. IMPRESSION: There is no acute fracture or dislocation ICD 10 NO FRACTURE, INITIAL EVALUATION
--- NOTE | 2023-02-05 10:09 | XR ---
EXAMINATION TYPE: XR Hip Limited LT DATE OF EXAM: 02/05/2023 CLINICAL HISTORY: M25.561 M25.562 M25.512 M25.511 M25.552 Pain TECHNIQUE: AP and frogleg views of the left hip are obtained. COMPARISON: None. FINDINGS: There is no acute fracture/dislocation evident in the left hip. The joint space in the le ft hip appears within normal limits. The overlying soft tissue appears unremarkable. IMPRESSION: There is no acute fracture or dislocation in the left hip.
--- NOTE | 2023-02-05 10:10 | XR ---
EXAMINATION TYPE: XR shoulder limited bilateral DATE OF EXAM: 02/05/2023 CLINICAL HISTORY: Pain TECHNIQUE: Three views of the bilateral shoulders are obtained. COMPARISON: None. FINDINGS: There is no acute fracture/dislocation.The acromioclavicular and glenohumeral joint spaces appear within normal limits. The visualized ribs are intact and unremarkable. IMPRESSION: There is no acute fracture or dislocation
== END | disposition home or self-care (01) ==
LOC: RADXRMAIN 09:18
PROVIDERS: ATTEND Family Medicine
DX: M25.561 Pain in right knee (principal); M25.562 Pain in left knee; M25.512 Pain in left shoulder; M25.511 Pain in right shoulder; M25.552 Pain in left hip
CPT/HCPCS: 73501

== ENCOUNTER → 2023-04-17 | Outpatient (CLI) | payer BC ==
--- NOTE | 2023-04-19 14:12 | MM ---
Reason for Exam: Screening (asymptomatic). Last mammogram was performed 1 year(s) and 2 month(s) ago. Patient History: Menarche at age 10. First Full-Term at age 17. Left ovary removed at age 39. Right ovary removed at age 39. Hysterectomy at age 39. Postmenopausal. Patient used Hormonal Contraceptives for 5 years. Maternal cousin had breast cancer, age 52. Risk Values: Iw[place] 5 year model risk: 1.2%. NCI Lifetime model risk: 5.3%. Prior Study Comparison: 03/05/2018 Bilateral Screening Mammogram, [facility]. 05/13/2020 Bilateral Screening Mammogram, [facility]. 03/12/2022 Bilateral MG screening mammo w CAD, [facility]. Tissue Density: The breast tissue is heterogeneously dense. This may lower the sensitivity of mammography. Findings: Analyzed By CAD. Pattern appears symmetrical and stable. No significant interval change is evident. No suspicious groups of microcalcifications, spiculated or lobular masses, architectural distortion or other secondary signs of malignancy are mammographically apparent. Overall Assessment: Benign, BI-RAD 2 Management: Screening Mammogram of both breasts in 1 year. A negative mammogram report should not preclude additional follow up of suspicious palpable abnormalities. Patient should continue monthly self breast exam. A clinical breast exam by your physician is recommended on an annual basis and results should be correlated with mammographic findings. Electronically signed and approved by: Kevin Coley D.O. Radiologis
== END | disposition home or self-care (01) ==
LOC: RADMAMWWP 11:21
PROVIDERS: ATTEND Family Medicine
DX: Z12.31 Encounter for screening mammogram for malignant neoplasm of breast (principal); Z80.3 Family history of malignant neoplasm of breast; Z78.0 Asymptomatic menopausal state
CPT/HCPCS: 77067